=== PATIENT | female | born 1940 | race Caucasian/White ===

== ENCOUNTER 2016-07-22 09:30 | Inpatient (IN) ==
[2016-07-15 13:57] LABS: Appearance,Urine CLEAR; Bilirubin,Urine NEG (NEG); Color,Urine YELLOW; Glucose,Urine (UA) NEGATIVE (NEG); Leukocyte Esterase,Urine NEG /uL (NEG); Nitrate,Urine NEG (NEG); Protein,Urine NEG (NEG); Specific Gravity,Urine 1.008 (1.000-1.035); Urine Blood NEG mg/dL (<0.03); Urobilinogen,Urine NEG (NEG)
[2016-07-15 14:13] LABS: Basophils # (Auto) 0.1 K/mcL (0.0-0.3); Basophils % (Auto) 0.6 % (0.0-2.0); Eosinophils # (Auto) 0.2 K/mcL (0.0-0.7); Eosinophils % (Auto) 2.1 % (0.0-7.0); Granulocytes % (Auto) 61.3 % (38.0-78.0); Lymphocytes # (Auto) 3.2 K/mcL (1.5-4.8); Lymphocytes % (Auto) 31.5 % (15.5-49.0); Mean Cell Volume 85.4 fL (80.0-100.0); Monocytes # (Auto) 0.5 K/mcL (0.1-0.9); Monocytes % (Auto) 4.5 % (1.0-9.0); Platelet Count 216 K/mcL (140-440); RBC 4.87 M/mcL (4.00-5.20); Red Cell Distribution Width 14.7 % (11.5-14.5)
[2016-07-15 14:46] LABS: Blood Urea Nitrogen 14 mg/dl (8-23)
[~2016-07-22 09:30] MED LIST: KETOROLAC 30 MG, ROPIVACAINE HCL/PF 49.5 ML, EPINEPHrine 0.5 MG, 0.9 % SODIUM CHLORIDE ... IJ SCH; PREGABALIN 150 MG CAPSULE PO SCH; ceFAZolin 1 GM VIAL IV SCH; oxyCODONE 10 MG TAB.ER.12H PO SCH
[2016-07-22] MEDS ORDERED: DEXAMETHASONE 10 MG/ML VIAL ONE (11:36)
[2016-07-22] MEDS ORDERED: MIDAZOLAM 2 MG/2 ML VIAL ONE (11:36)
[2016-07-22] MEDS ORDERED: ONDANSETRON 4 MG/2 ML VIAL ONE (11:36)
[2016-07-22] MEDS ORDERED: LIDOCAINE HCL/PF 100 MG/5 ML SYRINGE IV ONE (11:36)
[2016-07-22] MEDS ORDERED: PROPOFOL 200 MG/20 ML VIAL IV ONE (11:36)
[2016-07-22] MEDS ORDERED: HYDROmorphone 2 MG/ML SYRINGE IV PRN ×2 (12:47→14:48)
[2016-07-22] MEDS ORDERED: LACTATED RINGERS 250 ML IV PRN (12:47)
[2016-07-22] MEDS ORDERED: diphenhydrAMINE 50 MG/ML VIAL IV PRN (12:47)
[2016-07-22] MEDS ORDERED: NALOXONE HCL 0.4 MG/ML VIAL IV PRN (12:47)
[2016-07-22] MEDS ORDERED: BENZOCAINE/MENTHOL 1 LOZENGE PO PRN ×2 (12:47→14:48)
[2016-07-22] MEDS ORDERED: ONDANSETRON 4 MG/2 ML VIAL IV PRN ×2 (12:47→14:48)
[2016-07-22] MEDS ORDERED: FLUMAZENIL 0.1 MG/ML ML IV PRN (12:47)
[2016-07-22] MEDS ORDERED: IPRATROPIUM/ALBUTEROL 3 ML AMPUL.NEB NEB PRN (12:47)
[2016-07-22] MEDS ORDERED: METHOCARBAMOL 1,000 MG/10 ML VIAL IV PRN (12:47)
[2016-07-22] MEDS ORDERED: MEPERIDINE 25 MG/ML SYRINGE IV PRN (12:47)
[2016-07-22] MEDS ORDERED: fentaNYL 100 MCG/2 ML VIAL IV PRN (12:47)
[2016-07-22] MEDS ORDERED: PROMETHAZINE 25 MG/ML VIAL IV PRN (12:47)
[2016-07-22] MEDS ORDERED: LACTATED RINGERS 1,000 ML IV SCH (13:00)
[2016-07-22] MEDS ORDERED: TRANEXAMIC ACID 1,000 MG/10 ML VIAL IV SCH (13:20)
[2016-07-22] MEDS ORDERED: MAGNESIUM HYDROXIDE 30 ML ORAL.SUSP PO PRN (13:20)
[2016-07-22] MEDS ORDERED: NITROGLYCERIN 0.4 MG TAB.SUBL SL PRN (13:24)
[2016-07-22] MEDS ORDERED: MECLIZINE 25 MG TABLET PO PRN (13:24)
[2016-07-22] MEDS ORDERED: FLUTICASONE/SALMETEROL 50/100 INHALER #14 INH PRN (13:24)
--- NOTE | 2016-07-22 13:29 | Brief Operative Note ---
Date of procedure: 07/22/16 Pre-op diagnosis: Right knee DJD Post-op diagnosis: same Procedure: Right TKA Grafts/Implants: Yes ([place]aa Triathlon 3 CR femur, 3 tibia, 9mm insert, 33 patella) Anesthesia: spinal, GLMA Findings: tricompartmental arthrosis Complications: none Surgeon: Sharif Aggarwal Bill Checker: Brian Castro Estimated blood loss (cc): 30 Specimens Removed/Pathology: none sent Condition: stable Disposition: PACU
[2016-07-22] MEDS ORDERED: DICLOFENAC EPOLAMINE 1.3% TOPICAL PRN (14:00)
--- NOTE | 2016-07-22 14:23 | Operative Note ---
DATE OF OPERATION: 07/22/2016 PREOPERATIVE DIAGNOSIS: Right knee tricompartmental degenerative joint disease. POSTOPERATIVE DIAGNOSIS: Right knee tricompartmental degenerative joint disease. PROCEDURE PERFORMED: Right total knee arthroplasty using a [place] Triathlon size 3 cruciate retaining femoral component, a size 3 tibial baseplate, 9 mm X3 tibial insert with a 33 mm patellar button. SURGEON: Sharif Aggarwal MD. FENCE LABORER: Efe Castro PA-C. ANESTHESIA: Spinal plus general. DRAINS: None. SPECIMENS: Bone cuts, which were discarded. BLOOD LOSS: 30 mL POSTOPERATIVE CONDITION: Stable. INDICATIONS FOR SURGERY: This is a 76-year-old female who had progressive worsening knee pain and radiographs showing advanced patellofemoral and lateral compartment osteoarthritis with patellar maltracking. This was no longer being controlled conservatively and she wished to proceed surgically. FINDINGS AT SURGERY: She had full thickness trochlear groove and lateral femoral condyle cartilage loss. Medially she had near full thickness off the medial femoral condyle. Post implantation showed good patellar tracking, limb alignment and stability. PROCEDURE IN DETAIL: The patient had been seen preoperatively and informed consent had been obtained after discussion of risks and benefits of surgery. Risks including, but not limited to, bleeding, possibly requiring transfusion; infection, possibly requiring implant removal and prolonged IV antibiotics; injury to nerves, blood vessels, and other surrounding structures; anesthetic risks; incomplete or no resolution of pain; DVT and pulmonary embolus risks; stiffness, swelling, instability, and possibility of needing further surgery. She understood these risks and wished to proceed. Correct operative site was marked in preoperative holding and patient received spinal anesthesia. She was then taken to the operating room and LMA general given. The right lower extremity was carefully prepped and draped in normal sterile fashion and a time-out was performed verifying patient name, operative site, and plan. Esmarch was used to exsanguinate the extremity and tourniquet was inflated to 300. Skin was covered with Ioban and then a midline incision was made with a scalpel through skin and subcutaneous tissue. Hemostasis attained with Bovie cautery. We irrigated IrriSept and then incised the medial parapatellar arthrotomy using a scalpel. Subperiosteal exposure was done of the anterior medial tibia and the distal anterior cortex of the femur. The retropatellar fat pad was excised and ACL was transected. A drill hole was made in the distal femur and the flexible IM shorty passed. We pinned a 5 degree valgus cut angle with an 8 mm depth of resection. We went ahead and made our distal femoral cut. It appeared to be of adequate depth so we went ahead and marked our [place]'s line epicondylar access. She did have a hypoplastic lateral femoral condyle and it did require 6 degrees of external rotation to match her anatomy. We pinned the sizer block in place and she appeared to be between 4 and 5 on stylusing the anterior cortex so we went ahead and made drill holes for the 4-in-1 block. We then held up a size 5. It was clearly too wide for the femur, so we went to a size 4. This looked better so we went ahead and pinned a size 4-in-[address]. We made our anterior cut, which was flush with the anterior cortex so we went ahead and made our posterior and chamfer cuts. The tibia was then subluxed forward and menisci were removed. A drill hole was made in the ACL footprint and then IM shorty passed down the canal of the tibia. We stylused two off the medial side as this was more normal thickness cartilage with a 3 degree posterior slope cut. This was pinned into place and then we made our cut. This came out below cartilage throughout so we went ahead and sized this to a size 3. The 3 was externally rotated as bone coverage would allow and pinned into place. We used a boss renal boss reamer and keel punched to prepare the tibia and then a keeled tibial trial was impacted. We elevated the femur and removed posterior osteophytes with a curved osteotome and curved curet. We then impacted the size 4 femoral trial on. This was clearly too wide medial to lateral and would create too much overhang and likely source of irritation and pain, so we chose to downsize to a size 3. I ended up flexing the 4 in 1 block a little bit to prevent notching, pinned this into place and then made our anterior chamfer, posterior chamfer and posterior cuts. We then impacted a size 3. I made this flush with the medial cortex so it would not overhang medially. There was about a millimeter or 2 overhang laterally still. This was pinned into place and a 9 trial insert was placed. The knee was taken into extension. We then measured our patellar thickness, which was 22 mm. I went ahead and a freehand cut. My initial cut only 8 mm, so I went ahead and then did a saw blade thickness again and got this down to a residual of 13 mm. We then sized this to a 33, which was medialized maximally and holes were drilled. Patellar trial was placed, a very limited lateral facetectomy was performed with a saw blade. We then checked our patellar tracking and it tracked perfectly flat within the groove without lateral tilt or subluxation. We went ahead and opened our implant. The trial implants were removed. We irrigated IrriSept. After a minute we pulse lavaged copiously with saline while antibiotic cement was mixed. We then cleaned the cancellous bone surfaces with the CarboJet CO2 and then cemented the tibia followed by the femur. Excess cement was removed and then a 9 trial insert was placed and the knee was taken into extension. Patella was cemented. We then filled the joint with IrriSept again and then injected our pain cocktail into the pericapsular tissues and subcutaneous tissues. After letting the IrriSept sit for a minute, we then pulse lavaged copiously with saline until cement was fully hardened. We then flexed the knee up and did a final inspection and removal of any excess cement and then injected our pain cocktail into the posteromedial capsule. Definitive 9 mm insert was opened and this was carefully impacted and verified to be fully seated. We then did a final IrriSept irrigation, waited a minute and then pulse lavaged. We then used interrupted #1 Vicryl [id number] around the patella and running #1 Vicryl for patellar tendon and quad tendon. 2-0 Monocryl was used for subcutaneous and then salma for skin. Xeroform and sterile dressing were applied and then the patient was awakened, extubated, and transferred to recovery in stable condition. JARROD:fer Job ID: [id number] Doc ID: [id number] Sharif Aggarwal MD
[2016-07-22] MEDS ORDERED: BISACODYL 10 MG SUPP.RECT PR PRN (14:48)
[2016-07-22] MEDS ORDERED: FLEETS ADULT ENEMA PR PRN (14:48)
[2016-07-22] MEDS ORDERED: POLYETHYLENE GLYCOL 3350 17 GM PACKET PO PRN (14:48)
[2016-07-22] MEDS ORDERED: ALBUTEROL SULFATE 1 PUFF INHALER INH PRN (14:48)
--- NOTE | 2016-07-22 14:54 | XRay Report ---
CLINICAL INFORMATION: Postop total knee prostheses COMPARISON: Preoperative study from 12/05/2015. FINDINGS: Total knee prostheses is anatomically aligned. No osseous abnormality.. Diffuse soft tissue swelling seen as expected. IMPRESSION: Negative Interpreted and Authenticated by: Ahsan Yousif 07/22/16
[2016-07-22] MEDS: 0.9 % SODIUM CHLORIDE 1,000 ML IV SCH (15:10)
[2016-07-22] MEDS: 0.9 % SODIUM CHLORIDE 10 ML SYRINGE IV SCH ×2 (15:52→22:13)
[2016-07-22] MEDS: oxyCODONE/APAP 5/325MG TABLET PO PRN ×2 (16:40→21:10)
[2016-07-22] MEDS: KETOROLAC 15 MG/ML VIAL IV SCH (17:53)
[2016-07-22] MEDS: morphine 15 MG TABLET PO SCH (18:46)
[2016-07-22] MEDS: ceFAZolin 1 GM VIAL IV SCH (19:57)
[2016-07-22] MEDS ORDERED: traZODone HCL 50 MG TABLET PO PRN (21:00)
[2016-07-22] MEDS: ATORVASTATIN 20 MG TABLET PO SCH (21:10)
[2016-07-22] MEDS: DOCUSATE SODIUM 100 MG CAPSULE PO SCH ×2 (21:10)
[2016-07-22] MEDS: NORTRIPTYLINE 10 MG CAPSULE PO SCH (21:11)
[2016-07-22] MEDS: SENNOSIDES 1 TABLET PO SCH (21:11)
[2016-07-22] MEDS: ASPIRIN 325 MG ENTERIC COATED TABLET PO SCH (21:11)
[2016-07-23] MEDS: 0.9 % SODIUM CHLORIDE 1,000 ML IV SCH ×4 (00:12→20:54)
[2016-07-23] MEDS: morphine 15 MG TABLET PO SCH ×4 (00:13→18:50)
[2016-07-23] MEDS: KETOROLAC 15 MG/ML VIAL IV SCH ×5 (00:13→23:39)
[2016-07-23] MEDS: ceFAZolin 1 GM VIAL IV SCH (03:12)
[2016-07-23] MEDS: oxyCODONE/APAP 5/325MG TABLET PO PRN ×4 (03:12→21:03)
[2016-07-23] MEDS: 0.9 % SODIUM CHLORIDE 10 ML SYRINGE IV SCH ×3 (05:54→22:08)
[2016-07-23] MEDS ORDERED: LEVOTHYROXINE 88 MCG TABLET PO SCH (07:30)
[2016-07-23] MEDS: PANTOPRAZOLE 40 MG TABLET PO SCH (07:54)
--- NOTE | 2016-07-23 07:56 | Orthopedic Progress Note ---
Orthopedics - Auxillary Note - Subjective Patient Information: Note initiated : 07/23/16 at 7:55 am Service Date, if different from initiated Date: [] Patient: Nicole Talbert 76 y/o F admitted on 07/22/16 for Right Total Knee Arthroplasty. Chief Complaint: mild pain BANDAGES C/D/I NVI-DISTAL Vital Signs Temp Pulse Pulse Resp BP BP Pulse Ox 07/23/16 06:49 97.2 F L 75 12 118/63 94 07/23/16 04:00 97.6 F 83 12 115/74 93 07/23/16 00:00 97.7 F 79 12 129/72 91 07/22/16 20:00 97.2 F L 97 H 12 127/75 91 07/22/16 19:08 16 07/22/16 17:35 97.2 F L 82 16 142/68 94 07/22/16 17:10 98.2 F 73 16 144/82 96 07/22/16 16:44 95 07/22/16 16:43 88 L 07/22/16 16:34 79 16 118/64 92 07/22/16 16:05 82 110/62 96 07/22/16 15:35 74 145/82 96 07/22/16 15:20 79 138/83 94 07/22/16 15:05 75 138/82 96 07/22/16 14:55 76 76 L 07/22/16 14:50 97.2 F L 77 16 126/77 96 07/22/16 14:35 98.2 F 77 20 127/58 99 07/22/16 14:20 78 14 124/62 98 07/22/16 14:10 79 15 112/56 94 07/22/16 14:00 81 16 117/57 96 07/22/16 13:50 81 18 130/51 100 07/22/16 13:40 97.5 F L 87 18 136/60 100 07/22/16 10:16 97.6 F 96 H 20 190/62 96 Intake and Output 07/22/16 07/23/16 07/23/16 21:59 05:59 13:59 Intake Total 400 / 400 1253 / 1253 Output Total 501 / 501 850 / 850 Balance -101 / -101 403 / 403 Intake: IV 903 / 903 Sodium Chloride 0.9% 3 / 903 000 ml @ 100 mls/hr IV . Q10H GREGORIA Rx#:[id number] Oral 400 / 400 350 / 350 Output: Void Amount 500 / 500 850 / 850 # of times incontinent of urine Other: Meal Dinner Percent of Meal Consumed 50% # Voids 1 07 19 Weight 236 lb 8 oz Laboratory Results - last 24 hr 07/23/16 03:58 Hgb 12.9 Hct 40.1 S/P R TKA-STABLE MOBILIZE WITH PT WEAN OFF IV PAIN MEDS
[2016-07-23] MEDS: LEVOTHYROXINE 100 MCG TABLET PO SCH (08:46)
[2016-07-23] MEDS: DOCUSATE SODIUM 100 MG CAPSULE PO SCH ×3 (08:46→21:02)
[2016-07-23] MEDS: ASPIRIN 325 MG ENTERIC COATED TABLET PO SCH ×2 (08:46→21:03)
[2016-07-23] MEDS: POTASSIUM CHLORIDE 10 MEQ TABLET PO SCH (08:47)
[2016-07-23] MEDS: MAGNESIUM OXIDE 400 MG TABLET PO SCH (08:47)
[2016-07-23] MEDS: FUROSEMIDE 40 MG TABLET PO SCH (08:47)
[2016-07-23] MEDS: MULTIVIT,THER IRON,CA,FA & MIN 1 TABLET PO SCH (08:47)
[2016-07-23] MEDS ORDERED: NON FORMULARY MEDICATION 1 DOSE MISCELL (Magnesium Oxide [Magnesium] 400 MG) PO SCH (09:00)
[2016-07-23] MEDS: ATORVASTATIN 20 MG TABLET PO SCH (21:02)
[2016-07-23] MEDS: NORTRIPTYLINE 10 MG CAPSULE PO SCH (21:02)
[2016-07-23] MEDS: SENNOSIDES 1 TABLET PO SCH (21:12)
[2016-07-24] MEDS: morphine 15 MG TABLET PO SCH ×4 (01:15→18:49)
[2016-07-24] MEDS: oxyCODONE/APAP 5/325MG TABLET PO PRN ×4 (04:40→20:15)
[2016-07-24] MEDS: KETOROLAC 15 MG/ML VIAL IV SCH ×2 (06:04→11:27)
[2016-07-24] MEDS: 0.9 % SODIUM CHLORIDE 10 ML SYRINGE IV SCH ×3 (06:04→22:04)
[2016-07-24] MEDS: 0.9 % SODIUM CHLORIDE 1,000 ML IV SCH (06:15)
--- NOTE | 2016-07-24 07:38 | Discharge Summary ---
Providers - Providers Patient information: Note initiated : 07/24/16 at 7:35 am Service Date, if different from initiated Date: [] Patient: Nicole Talbert 76 y/o F admitted on 07/22/16 for Right Total Knee Arthroplasty. Chief Complaint: [] Discharge date: 07/24/16 Hospitalization Hospital course: Patient underwent a tka on day of admission. she spent two night on the floor prior to being discharged to home for IV pain meds, PT, and IV abx. Discharge diagnosis: R knee osteoarthrosis Exam - Exam Clean and dry: Yes Weight bearing status: as tolerated Ortho Discharge - TKA - Patient Instructions Diet: Regular Diet Activity: activity as tolerated Total Knee Protocol: For Total Knee: Start ROM RYAN with stationary bike or rocking chair. Work on gaining full extension of knee. Posterior dislocation precautions provided. Hip abductor strengthening and gait training instructions provided. Apply Cryocuff as instructed. Dressing Care: May shower in 2 days Patient Education: Total Knee Replacement (DC) Additional Instructions: Discharge Instructions: Do the exercises at home that physical therapy gave you. Take your prescription, photo ID, insurance cards, and current medication list with you to your first physical therapy appointment. Take your prescription to sheepskin pickler any medication or equipment (such as walker, crutches, toilet riser or C.P.M.) Wear comfortable clothing for your physical therapy. Weight bearing as tolerated. If you have the Aquacel Ag dressing, leave in place for 7 days then remove. If dressing becomes soiled (turns black), remove and use gauze 4x4 dressing and silvasorb ointment and change daily. Keep incision clean and dry. If you have Dermabond (a dressing with a mesh-like appearance), leave open to air. You may start showering on post op day #2. The Dermabond dressing can get wet, do not scrub dressing. Pat dry. To avoid constipation while taking any narcotic pain medication, take an over the counter stool softener/laxative. Use your Cryocuff or ice packs as directed, on for 20 minutes at a time throughout the day. This and elevation will help with pain and swelling. Call your physician for fevers above 100.5 or pain not controlled by medication. Your prescriptions are with your discharge information. Some medications were electronically transmitted to your pharmacy of choice. - Follow Up Plan Follow Up Appointments: Sharif Aggarwal MD [Physician] - 08/06/16 11:20 am Disposition: Home, Self-Care Prognosis: Good Rehab Potential: Good Overall status at discharge: patient is progressing back to baseline - Orders For Discharge Prescriptions: Aspirin [Ecotrin] 325 mg PO BID #60 tab.ec oxyCODONE/APAP [Percocet 5-325 mg] 1 - 2 tab PO Q4HP PRN #90 tablet PRN Reason: Pain Additional Discharge Orders: Physical Therapy at Discharge - TKA Location: Determined By Patient Walker Location: Determined By Patient Pending Studies Resuscitation Status Full Code Diet Regular Diet Start WedJul 22 Dinner Aspirin (Ecotrin) 325 mg PO BID [facility] Last Admin: 07/23/16 21:03 Dose: 325 mg Admin: 07/23/16 08:46 Dose: 325 mg Admin: 07/22/16 21:11 Dose: 325 mg Atorvastatin Calcium (Lipitor) [address] [facility] Last Admin: 07/23/16 21:02 Dose: 20 mg Admin: 07/22/16 21:10 Dose: 20 mg Docusate Sodium (Colace) 100 mg PO BID [facility] Last Admin: 07/23/16 21:02 Dose: 100 mg Admin: 07/23/16 08:46 Dose: 100 mg Admin: 07/22/16 21:10 Dose: 100 mg Docusate Sodium (Colace) [address] [facility] Last Admin: 07/23/16 21:02 Dose: 200 mg Admin: 07/22/16 21:10 Dose: 200 mg Furosemide (Lasix) 20 mg PO QDAY [facility] Last Admin: 07/23/16 08:47 Dose: 20 mg Hydromorphone HCl (Dilaudid) 0 mg IV Q2HP PRN PRN Reason: Pain Last Admin: 07/22/16 16:00 Dose: 1 mg Sodium Chloride (Sodium Chloride 0.9%) 1,000 mls @ 100 mls/hr IV .Q10H [facility] Last Admin: 07/24/16 06:15 Dose: Admin: 07/23/16 20:54 Dose: Admin: 07/23/16 15:02 Dose: 100 mls/hr Infusion: 07/23/16 10:12 Dose: 100 mls/hr Admin: 07/23/16 09:06 Dose: Not Given Admin: 07/23/16 00:12 Dose: 100 mls/hr Infusion: 07/23/16 00:12 Dose: 100 mls/hr Admin: 07/22/16 15:10 Dose: 100 mls/hr Iron Carb/Multivit/Expedition Supervisor/Folic Acid (Multivitamin W/Minerals) 1 tab PO DAILY [facility] Last Admin: 07/23/16 08:47 Dose: 1 tab Ketorolac Tromethamine (Toradol) 15 mg IV Q6 [facility] Stop: 07/24/16 12:01 Last Admin: 07/24/16 06:04 Dose: 15 mg Admin: 07/23/16 23:39 Dose: 15 mg Admin: 07/23/16 17:41 Dose: 15 mg Admin: 07/23/16 11:55 Dose: 15 mg Admin: 07/23/16 05:23 Dose: 15 mg Admin: 07/23/16 00:13 Dose: 15 mg Admin: 07/22/16 17:53 Dose: 15 mg Levothyroxine Sodium (Synthroid) 100 mcg PO ACB [facility] Last Admin: 07/23/16 08:46 Dose: 100 mcg Magnesium Oxide (Magnesium Oxide) 200 mg PO DAILY [facility] Last Admin: 07/23/16 08:47 Dose: 200 mg Morphine Sulfate (Morphine) 15 mg PO QIDP [facility] Last Admin: 07/24/16 01:15 Dose: 15 mg Admin: 07/23/16 18:50 Dose: 15 mg Admin: 07/23/16 14:13 Dose: 15 mg Admin: 07/23/16 07:54 Dose: 15 mg Admin: 07/23/16 00:13 Dose: 15 mg Admin: 07/22/16 18:46 Dose: 15 mg Morphine Sulfate (Morphine Mortgage Advisor) 30 mg IV UD PRN; Protocol PRN Reason: Pain Last Admin: 07/23/16 23:37 Dose: 30 mg Nortriptyline HCl (Pamelor) 10 mg PO QHS [facility] Last Admin: 07/23/16 21:02 Dose: 10 mg Admin: 07/22/16 21:11 Dose: 10 mg Oxycodone/Acetaminophen (Percocet 5-325 Mg) 0 tab PO Q4HP PRN PRN Reason: Pain Last Admin: 07/24/16 04:40 Dose: 2 tab Admin: 07/23/16 21:03 Dose: 2 tab Admin: 07/23/16 16:40 Dose: 2 tab Admin: 07/23/16 12:05 Dose: 2 tab Admin: 07/23/16 03:12 Dose: 2 tab Admin: 07/22/16 21:10 Dose: 2 tab Admin: 07/22/16 16:40 Dose: 2 tab Pantoprazole Sodium (Protonix) 40 mg PO QAMAC [facility] Last Admin: 07/23/16 07:54 Dose: 40 mg Polyethylene Glycol (Miralax) 17 gm PO DAILYP PRN PRN Reason: Constipation Last Admin: 07/23/16 08:47 Dose: 17 gm Potassium Chloride (Kdur) 10 meq PO QAMCC [facility] Last Admin: 07/23/16 08:47 Dose: 10 meq Senna (Senokot) 2 tab PO HS [facility] Last Admin: 07/23/16 21:12 Dose: 2 tab Admin: 07/22/16 21:11 Dose: 2 tab Sodium Chloride (Saline Flush) 10 ml IV Q8 [facility] Last Admin: 07/24/16 06:04 Dose: Not Given Admin: 07/23/16 22:08 Dose: Not Given Admin: 07/23/16 13:20 Dose: Not Given Admin: 07/23/16 05:54 Dose: Not Given Admin: 07/22/16 22:13 Dose: Not Given Admin: 07/22/16 15:52 Dose: Not Given Shift Summary 07/24/16 03:38 Shift Summary by Zeeshan Villanueva Patient up sitting @ bedside@ the beginning of this noc - stated it was the most comfortable position for her. She is up AMB to & from bathroom with SBA - using FWW. She is voiding QS, and has not had a BM as yet. IV LT hand with NS @ TKO for TRAVELING NURSE Dilaudid - set @ 0.5mg Q 10 min. RT knee joellen wrap - C,D,I. She has reveived PO morphine 15mg last @ 011, & PO Percocet (2) @ 2114. She continues to use her TRAVELING NURSE button frequently dispite the oral pain med. Resting with her CPAP on @ this time. Cont pulse OX in place. VS - WNL on R.A.. Initialized on 07/24/16 03:38 - END OF NOTE
[2016-07-24] MEDS: LEVOTHYROXINE 100 MCG TABLET PO SCH (09:36)
[2016-07-24] MEDS: POTASSIUM CHLORIDE 10 MEQ TABLET PO SCH (09:36)
[2016-07-24] MEDS: ASPIRIN 325 MG ENTERIC COATED TABLET PO SCH ×2 (09:36→20:14)
[2016-07-24] MEDS: DOCUSATE SODIUM 100 MG CAPSULE PO SCH ×3 (09:36→20:14)
[2016-07-24] MEDS: PANTOPRAZOLE 40 MG TABLET PO SCH (09:37)
[2016-07-24] MEDS: MAGNESIUM OXIDE 400 MG TABLET PO SCH (09:39)
[2016-07-24] MEDS: MULTIVIT,THER IRON,CA,FA & MIN 1 TABLET PO SCH (09:40)
[2016-07-24] MEDS: FUROSEMIDE 40 MG TABLET PO SCH (09:40)
[2016-07-24] MEDS: SENNOSIDES 1 TABLET PO SCH (20:14)
[2016-07-24] MEDS: ATORVASTATIN 20 MG TABLET PO SCH (20:32)
[2016-07-24] MEDS: NORTRIPTYLINE 10 MG CAPSULE PO SCH (22:04)
[2016-07-25] MEDS: oxyCODONE/APAP 5/325MG TABLET PO PRN ×3 (00:22→12:06)
[2016-07-25] MEDS: morphine 15 MG TABLET PO SCH ×3 (01:26→13:02)
[2016-07-25] MEDS: LEVOTHYROXINE 100 MCG TABLET PO SCH (08:25)
[2016-07-25] MEDS: DOCUSATE SODIUM 100 MG CAPSULE PO SCH (08:25)
[2016-07-25] MEDS: POTASSIUM CHLORIDE 10 MEQ TABLET PO SCH (08:25)
[2016-07-25] MEDS: MAGNESIUM OXIDE 400 MG TABLET PO SCH (08:25)
[2016-07-25] MEDS: PANTOPRAZOLE 40 MG TABLET PO SCH (08:26)
[2016-07-25] MEDS: MULTIVIT,THER IRON,CA,FA & MIN 1 TABLET PO SCH (08:26)
[2016-07-25] MEDS: 0.9 % SODIUM CHLORIDE 10 ML SYRINGE IV SCH ×2 (08:26→12:07)
[2016-07-25] MEDS: ASPIRIN 325 MG ENTERIC COATED TABLET PO SCH (08:26)
[2016-07-25] MEDS: FUROSEMIDE 40 MG TABLET PO SCH (08:27)
--- NOTE | 2016-07-25 10:56 | Orthopedic Progress Note ---
Subjective Patient information: Note initiated : 07/25/16 at 10:54 am Service Date, if different from initiated Date: [] Patient: Nicole Talbert 76 y/o F admitted on 07/22/16 for Right Total Knee Arthroplasty. Chief Complaint: [] Principal diagnosis: s/p TKA Interval history: pain better today Objective Vital signs: Vital Signs Temp Pulse Pulse Resp BP Pulse Ox 07/25/16 07:25 97.8 F 92 H 12 146/80 07/25/16 04:00 97.9 F 75 20 158/76 98 07/24/16 23:25 97.8 F 78 20 162/65 97 07/24/16 16:00 98.5 F 77 18 135/72 97 07/24/16 11:47 98.7 F 77 18 129/52 98 07/24/16 10:58 18 Intake and Output 07/24/16 07/25/16 07/25/16 21:59 05:59 13:59 Intake Total 600 / 600 Output Total 1050 / 1050 900 / 900 200 / 200 Balance -1050 / -1050 -300 / -300 -200 / -200 Intake: Oral 600 / 600 Output: Void Amount 1050 / 1050 900 / 900 200 / 200 Other: Weight 239 lb Intake & Output: Intake & Output 07/24/16 07/25/16 07/25/16 21:59 05:59 13:59 Intake Total 600 / 600 Output Total 1050 / 1050 900 / 900 200 / 200 Balance -1050 / -1050 -300 / -300 -200 / -200 Weight 239 lb Intake: Oral 600 / 600 Output: Void Amount 1050 / 1050 900 / 900 200 / 200 Dressing: Yes clean, Yes dry, Yes intact Neurological exam IM: Yes alert, Yes oriented X3 - Labs CBC & BMP: 07/25/16 04:50 07/15/16 12:11 Labs: Orthopedic Labs 07/15/16 12:11 PT 13.8 INR 1.0 07/25/16 07/24/16 07/23/16 04:50 04:55 03:58 Hgb 12.1 11.1 L 12.9 Hct 37.4 34.0 L 40.1 07/15/16 12:11 Hgb 14.1 Hct 41.6 Assessment and Plan (1) S/P total knee arthroplasty POD#3 s/p R TKA-ortho stable -d/c home Status: Acute
== END 2016-07-25 14:15 | disposition home or self-care (01) | DRG 470 ==
LOC: MEDSUR 09:44
PROVIDERS: ADMIT Orthopaedic Surgery; ATTEND Orthopaedic Surgery